=== PATIENT | male | born 1985 | race Two or more races ===

== ENCOUNTER 2019-03-26 08:26 | Inpatient (IN) | payer OTHER ==
[~2019-03-26] VITALS: Ht 180.3 cm; Wt 125.6 kg
--- NOTE | 2019-03-26 08:40 | NUR ---
ED Nurse Note: Patient walked into ED from home c/o bulging area around on the right groin area. patient reports "I'm worried that it might be hernia." patient is alert awake x4 ambulatory steady gait, breathing unlabored and even, speaking in full sentences. patient provided with hospital gown, RN assessed the area, skin aournd grown and testicles appear red and irritated, some serosanguinous fluid oozing from the skin tear on the right groin area. patient reports this oozing has been there for 4-5 days. patient felt the "bulging" swelling on the right groin for about 1 month. Also noted left thigh area redness and scabs. patient reports 8/10 on the right groin area.
--- NOTE | 2019-03-26 09:00 | NUR ---
ED Nurse Note: abscess present in Rt upper inner thigh with pus and a hole. ERMD assessed it.
--- NOTE | 2019-03-26 09:03 | NUR ---
HAND-OFF: Report given to Dallas Hicks RN. patient moved to tx 1
[2019-03-26] MEDS ORDERED: SODIUM CHLORIDE IVLG ONE (09:15)
[2019-03-26] MEDS ORDERED: Vancomycin 1.5 GM in NS 275 ML IVPB ONE (09:15)
[2019-03-26 09:26] VITALS: BP 133/89
--- NOTE | 2019-03-26 09:28 | Emergency Room Report ---
History of Present Illness General Chief Complaint: General Complaint Source: Patient Present Illness HPI The patient states that for the last month he has had a "lump" on his right inner thigh. He states that it has been draining pus. He denies fever chills. He denies nausea or vomiting. He states he thought because it was so large that possibly it was a hernia. He denies difficulty urinating or any bowel habit changes. He has no other complaints. Allergies: Coded Allergies: No Known Allergies (Unverified , 03/26/19) Patient History Past Medical History: none, see triage record Social History: Denies: smoking, alcohol use, drug use Reviewed Nursing Documentation: PMH: Agreed; PSxH: Agreed Nursing Documentation-PMH Past Medical History: No Stated History Review of Systems All Other Systems: negative except mentioned in HPI Physical Exam Vital Signs Date Time Temp Pulse Resp B/P (MAP) Pulse Ox O2 Delivery O2 Flow Rate FiO2 03/26/19 08:34 98.8 103 21 133/89 (104) 97 Room Air Sp02 EP Interpretation: reviewed, normal General Appearance: no apparent distress, alert, GCS 15, non-toxic Head: normocephalic, atraumatic Eyes: bilateral eye normal inspection, bilateral eye PERRL ENT: hearing grossly normal, normal pharynx, no angioedema, normal voice Neck: full range of motion, supple/symm/no masses Respiratory: chest non-tender, lungs clear, normal breath sounds, no respiratory distress, no retraction, no accessory muscle use, speaking full sentences Cardiovascular #1: regular rate, rhythm, no edema Gastrointestinal: normal bowel sounds, non tender, soft, non-distended, no guarding, no rebound Rectal: deferred Musculoskeletal: back normal, gait/station normal, normal range of motion, non- tender Neurologic: alert, oriented x3, responsive, motor strength/tone normal, sensory intact, speech normal Psychiatric: judgement/insight normal, memory normal, mood/affect normal, no suicidal/homicidal ideation Skin: other - R. Inner thigh with large area of induration and erythema. No fluctuance. Open and draining purulent discharge. Lymphatic: no adenopathy Medical Decision Making Diagnostic Impression: Primary Impression: Cellulitis Additional Impression: Abscess ER Course This patient has a very large indurated region of his right inner thigh with an associated draining cutaneous abscess. The abscess region feels loculated and nonfluctuant. The skin is erythematous and boggy and his findings are consistent with an associated cellulitis. I am concerned about the location and that this could extend into the perineal area and become Rebecca's gangrene or a more extensive abscess. The wound is spontaneously draining at this time. The patient was given IV vancomycin and admitted for further IV antibiotics and evaluation by general surgery. Laboratory Tests Test 03/26/19 09:22 White Blood Count 10.6 K/UL (4.8-10.8) Red Blood Count 4.74 M/UL (4.70-6.10) Hemoglobin 13.9 G/DL (14.2-18.0) L Hematocrit 42.7 % (42.0-52.0) Mean Corpuscular Volume 90 FL (80-99) Mean Corpuscular Hemoglobin 29.3 PG (27.0-31.0) Mean Corpuscular Hemoglobin Concent 32.5 G/DL (32.0-36.0) Red Cell Distribution Width 11.4 % (11.6-14.8) L Platelet Count 304 K/UL (150-450) Mean Platelet Volume 7.5 FL (6.5-10.1) Neutrophils (%) (Auto) 81.9 % (45.0-75.0) H Lymphocytes (%) (Auto) 13.4 % (20.0-45.0) L Monocytes (%) (Auto) 4.0 % (1.0-10.0) Eosinophils (%) (Auto) 0.2 % (0.0-3.0) Basophils (%) (Auto) 0.6 % (0.0-2.0) Sodium Level 139 MMOL/L (136-145) Potassium Level 4.1 MMOL/L (3.5-5.1) Chloride Level 103 MMOL/L (98-107) Carbon Dioxide Level 24 MMOL/L (21-32) Anion Gap 12 mmol/L (5-15) Blood Urea Nitrogen 9 mg/dL (7-18) Creatinine 0.9 MG/DL (0.55-1.30) Estimate Glomerular Filtration Rate > 60 mL/min (>60) Glucose Level 95 MG/DL (74-106) Lactic Acid Level 0.90 mmol/L (0.4-2.0) Calcium Level 9.1 MG/DL (8.5-10.1) Total Bilirubin 0.6 MG/DL (0.2-1.0) Aspartate Amino Transferase (AST) 24 U/L (15-37) Alanine Aminotransferase (ALT) 39 U/L (12-78) Alkaline Phosphatase 209 U/L (46-116) H Total Protein 8.7 G/DL (6.4-8.2) H Albumin 3.4 G/DL (3.4-5.0) Globulin 5.3 g/dL Albumin/Globulin Ratio 0.6 (1.0-2.7) L Last Vital Signs Date Time Temp Pulse Resp B/P (MAP) Pulse Ox O2 Delivery O2 Flow Rate FiO2 03/26/19 08:34 98.8 103 21 133/89 (104) 97 Room Air Status: improved Disposition: ADMITTED INPATIENT Condition: Serious Rachel Delgadillo DO Mar 26, 2019 09:28
[2019-03-26 09:36] LABS: BASOPHILS % (AUTO) 0.6 % (0.0-2.0); EOSINOPHILS % (AUTO) 0.2 % (0.0-3.0); HEMATOCRIT 42.7 % (42.0-52.0); HEMOGLOBIN 13.9 G/DL (14.2-18.0); LYMPHOCYTES % (AUTO) 13.4 % (20.0-45.0); MEAN CORPUSCULAR VOLUME 90 FL (80-99); NEUTROPHILS % (AUTO) 81.9 % (45.0-75.0); PLATELET COUNT 304 K/UL (150-450); RED BLOOD COUNT 4.74 M/UL (4.70-6.10); RED CELL DISTRIBUTION WIDTH 11.4 % (11.6-14.8); WHITE BLOOD COUNT 10.6 K/UL (4.8-10.8)
[2019-03-26] MEDS ORDERED: NKM (09:46)
[2019-03-26 10:00] LABS: ANION GAP 12 mmol/L (5-15); BLOOD UREA NITROGEN 9 mg/dL (7-18); CALCIUM 9.1 MG/DL (8.5-10.1); CARBON DIOXIDE 24 MMOL/L (21-32); CHLORIDE 103 MMOL/L (98-107); CREATININE 0.9 MG/DL (0.55-1.30); POTASSIUM 4.1 MMOL/L (3.5-5.1); SODIUM 139 MMOL/L (136-145)
[2019-03-26 10:14] LABS: ALANINE AMINOTRANSFERASE 39 U/L (12-78); ALBUMIN 3.4 G/DL (3.4-5.0); ALBUMIN/GLOBULIN RATIO 0.6 (1.0-2.7); ALKALINE PHOSPHATASE 209 U/L (46-116); ASPARTATE AMINO TRANSFERASE 24 U/L (15-37); BILIRUBIN,TOTAL 0.6 MG/DL (0.2-1.0)
[2019-03-26 11:11] VITALS: BP 129/78
--- NOTE | 2019-03-26 13:14 | NUR ---
ED Nurse Note: Report given to SKYE Ramirez. waiting for ERMD to give report to Dr. Solis.
--- NOTE | 2019-03-26 13:36 | NUR ---
ED Nurse Note: pt left unit with 1 simulation tech in stable condition.
[2019-03-26 14:45] VITALS: BP 134/78
--- NOTE | 2019-03-26 14:47 | NUR ---
NURSE NOTES: Patient transferred from ER at 1350 via gurney. Belongings reviewed and accounted for. Patient has wallet, 1 debit card, and $2 at bedside. Patient reports that he wants to keep belongings at bedside and does not want to send items to safe. Patient is alert and oriented x4. Abscess on right groin has drainage, patient reports minimal pain at site. Patient oriented to room. Side rails are upx2, bed is locked, and call light placed near patient. Dr. Solis called for admission orders. New orders received.
[2019-03-26] MEDS: Doxycycline Monohydrate 100mg ORAL SCH ×2 (15:36→20:43)
[2019-03-26 16:00] VITALS: BP 141/88
[2019-03-26] MEDS ORDERED: Omnipaque-300 100ml vial INJ PRN (16:00)
--- NOTE | 2019-03-26 16:00 | Consultation ---
History of Present Illness General Date patient seen: Mar 26, 2019 Reason for Hospitalization: General Complaint Present Illness HPI 34 year old male patient states that for the last month he has had a "lump" on his right inner thigh. He states that it has been draining pus. He denies fever chills. He denies nausea or vomiting. He states he thought because it was so large that possibly it was a hernia. He denies difficulty urinating or any bowel habit changes. He has no other complaints. Decided that it has been ongoing for long enough and came in for evaluation. states pus draining for days. has also a right buttock area similar. has good hygiene. sweats a lot. labs okay. surgery called to evaluate. patient seen, chart reviewed, patient examined. Allergies: Coded Allergies: No Known Allergies (Unverified , 03/26/19) Medication History Scheduled No Known Medications* (NKM - No Known Medications*), 0 ., (Reported) Patient History History Provided By: Patient, Medical Record, PMD Healthcare decision maker Resuscitation status Full Code Advanced Directive on File Past Medical/Surgical History Past Medical/Surgical History: (1) Cellulitis (2) Abscess Review of Systems Review of Symptoms General ROS: no weight loss or fever Psychological ROS: no depression or mood changes, no memory loss Ophthalmic ROS: no visual changes or eye irritation ENT ROS: no nasal congestion, hearing loss, dizziness Allergy and Immunology ROS: no allergic symptoms or urticaria Hematological and Lymphatic ROS: no swollen glands, unusual bleeding or bruising Endocrine ROS: no polyuria, polydipsia, weight changes, temperature intolerance Respiratory ROS: no cough, shortness of breath, or wheezing Cardiovascular ROS: no chest pain or dyspnea on exertion Gastrointestinal ROS: denies abdominal pain, no bright red blood in stool. Musculoskeletal ROS: no myalgias or arthralgias Neurological ROS: no TIA or stroke symptoms Dermatological ROS: no new or changing skin lesions, rashes or pruritis Physical Exam Physical Exam General appearance: alert, cooperative, no distress, appears stated age Head: Normocephalic, without obvious abnormality, atraumatic Eyes: conjunctivae/corneas clear. PERRL, EOM's intact. Fundi benign Throat: Lips, mucosa, and tongue normal. Teeth and gums normal Neck: supple, symmetrical, trachea midline, no adenopathy, thyroid: not enlarged, symmetric, no tenderness/mass/nodules, no carotid bruit and no JVD Lungs: clear to auscultation bilaterally Heart: regular rate and rhythm, S1, S2 normal, no murmur, click, rub or gallop Abdomen: soft, non-tender. Bowel sounds normal. No masses, no organomegaly Extremities: extremities normal, atraumatic, no cyanosis or edema Pulses: 2+ and symmetric Skin: Skin color, texture, turgor normal. No rashes or lesions. right inner thigh there is an area of induration and drainage of pus. wraps around to buttock and left inner thigh. Neurologic: Grossly normal Last 24 Hour Vital Signs Date Time Temp Pulse Resp B/P (MAP) Pulse Ox O2 Delivery O2 Flow Rate FiO2 03/26/19 15:18 Room Air 03/26/19 14:45 97.9 89 18 134/78 (96) 99 03/26/19 13:34 98.1 88 16 126/79 98 Room Air 03/26/19 11:11 98.2 91 16 129/78 98 Room Air 03/26/19 09:26 98.8 103 21 133/89 97 Room Air 03/26/19 09:26 103 21 Room Air 03/26/19 08:34 98.8 103 21 133/89 (104) 97 Room Air Laboratory Tests Test 03/26/19 09:22 White Blood Count 10.6 K/UL (4.8-10.8) Red Blood Count 4.74 M/UL (4.70-6.10) Hemoglobin 13.9 G/DL (14.2-18.0) L Hematocrit 42.7 % (42.0-52.0) Mean Corpuscular Volume 90 FL (80-99) Mean Corpuscular Hemoglobin 29.3 PG (27.0-31.0) Mean Corpuscular Hemoglobin Concent 32.5 G/DL (32.0-36.0) Red Cell Distribution Width 11.4 % (11.6-14.8) L Platelet Count 304 K/UL (150-450) Mean Platelet Volume 7.5 FL (6.5-10.1) Neutrophils (%) (Auto) 81.9 % (45.0-75.0) H Lymphocytes (%) (Auto) 13.4 % (20.0-45.0) L Monocytes (%) (Auto) 4.0 % (1.0-10.0) Eosinophils (%) (Auto) 0.2 % (0.0-3.0) Basophils (%) (Auto) 0.6 % (0.0-2.0) Sodium Level 139 MMOL/L (136-145) Potassium Level 4.1 MMOL/L (3.5-5.1) Chloride Level 103 MMOL/L (98-107) Carbon Dioxide Level 24 MMOL/L (21-32) Anion Gap 12 mmol/L (5-15) Blood Urea Nitrogen 9 mg/dL (7-18) Creatinine 0.9 MG/DL (0.55-1.30) Estimat Glomerular Filtration Rate > 60 mL/min (>60) Glucose Level 95 MG/DL (74-106) Lactic Acid Level 0.90 mmol/L (0.4-2.0) Calcium Level 9.1 MG/DL (8.5-10.1) Total Bilirubin 0.6 MG/DL (0.2-1.0) Aspartate Amino Transf (AST/SGOT) 24 U/L (15-37) Alanine Aminotransferase (ALT/SGPT) 39 U/L (12-78) Alkaline Phosphatase 209 U/L (46-116) H Total Protein 8.7 G/DL (6.4-8.2) H Albumin 3.4 G/DL (3.4-5.0) Globulin 5.3 g/dL Albumin/Globulin Ratio 0.6 (1.0-2.7) L Height (Feet): 5 Height (Inches): 11.00 Weight (Pounds): 277 Medications Current Medications Medications (Trade) Dose Ordered Sig/Rosalba Route PRN Reason Start Time Stop Time Status Last Admin Dose Admin Acetaminophen (Tylenol) 650 mg Q4H PRN ORAL Mild Pain/Temp > 100.5 03/26/19 14:45 04/25/19 14:44 03/26/19 15:37 Doxycycline Monohydrate (Doxycycline Monohydrate) 100 mg EVERY 12 HOURS ORAL 03/26/19 14:58 04/02/19 14:57 03/26/19 15:36 Assessment/Plan Problem List: (1) Abscess Assessment & Plan: 34M with spontaneously draining right thigh abscess present for 1 month buttock area as well and left thigh almost consistent with HS hydradenitis superlative no acute surgical intervention planned since draining spont CT ordered to ensure no deep pocket IV abx as per ID okay for diet hygiene local wound care and skin care instructions given thank you will follow with recs ICD Codes: L02.91 - Cutaneous abscess, unspecified SNOMED: [id number] (2) Cellulitis ICD Codes: L03.90 - Cellulitis, unspecified SNOMED: [id number] Jorge Londono Mar 26, 2019 16:00
--- NOTE | 2019-03-26 17:44 | NUR ---
NURSE NOTES: During admission assessment patient reported that he has had suicide ideation in the past. He reports that he does not have a suicide thoughts right now and that he does not have a suicide plan, but reports that he could benefit from seeing a psychiatrist. Patient also reported that he used to cut himself. Dr. Solis notified. New order received for psychiatric consult. Dr. Blackman notified.
--- NOTE | 2019-03-26 17:45 | Consultation ---
DATE OF CONSULTATION: 03/26/2019 INFECTIOUS DISEASE CONSULTATION CONSULTING PHYSICIAN: Low Hernandez M.D. PRIMARY ATTENDING: Dayami Solis M.D. REASON FOR CONSULT: Right groin skin lesion, abscess, cellulitis. HISTORY OF PRESENT ILLNESS: This is a 34-year-old male admitted today from home complaining of developing a round lump in the right groin upper thigh area for 4 months. Started having draining recently. No fever. No chills. No significant pain. The patient started to feel the pain and the lesion was hernia. PAST MEDICAL HISTORY: Insignificant. MEDICATIONS: Got a dose of vancomycin in the ER. Has Tylenol. ALLERGIES: No known drug allergy. SOCIAL HISTORY: Single. Denies alcohol, drug abuse, or smoking. Had HIV test a few months ago that was negative. Works in [employer]. REVIEW OF SYSTEMS: No fever. No chills. No coughing. No shortness of breath. No nausea. No vomiting. No dysuria. PHYSICAL EXAMINATION: VITAL SIGNS: Temperature 98.1, pulse 88, blood pressure 126/79. GENERAL APPEARANCE: No acute distress. Seems obese. HEAD AND NECK: [place] conjunctivae. Slightly whitish tongue. HEART: Normal rate. LUNGS: Clear. ABDOMEN: Soft, nontender. EXTREMITIES: Has no edema. SKIN: Abnormal skin bilateral groins, more in the right side with lumps and draining sites. LABORATORY AND DIAGNOSTIC DATA: Sodium 139, potassium 4.1, chloride 103, bicarbonate 24, BUN 9, creatinine 0.9, glucose 95. Alkaline phosphatase is elevated 209. Albumin is 3.4. IMPRESSION: Hidradenitis suppurativa, worse in the right groin area. The patient has morbid obesity. RECOMMENDATION: Start the patient on p.o. doxycycline. Surgical evaluation is pending. We will also obtain wound culture from the lesion. At the end of my exam, I thank Dr. Solis for involving me in the care of this patient. Low Hernandez M.D. DR: ARSLAN JOB#: [id number] CC: MARIA ELENA
--- NOTE | 2019-03-26 19:40 | NUR ---
HAND-OFF: Report given to SKYE Diaz.
--- NOTE | 2019-03-26 19:50 | NUR ---
NURSE NOTES: received report form SKYE Quarles. Patient A&Ox4, on room air, no signs of distress or labored breathing. IV intact, patent, and saline locked. Denies pain. Bed in lowest position with call light in reach. Will continue with plan of care.
[2019-03-26 20:00] VITALS: BP 120/66
[2019-03-27] VITALS: BP 110/72
[2019-03-27 04:00] VITALS: BP 129/86
[2019-03-27 07:04] LABS: BASOPHILS % (AUTO) 0.7 % (0.0-2.0); HEMATOCRIT 36.9 % (42.0-52.0); LYMPHOCYTES % (AUTO) 24.3 % (20.0-45.0); MEAN CORPUSCULAR VOLUME 89 FL (80-99); MONOCYTES % (AUTO) 5.7 % (1.0-10.0); NEUTROPHILS % (AUTO) 68.3 % (45.0-75.0); PLATELET COUNT 267 K/UL (150-450); RED BLOOD COUNT 4.15 M/UL (4.70-6.10); RED CELL DISTRIBUTION WIDTH 12.5 % (11.6-14.8)
[2019-03-27 07:13] LABS: ALANINE AMINOTRANSFERASE 30 U/L (12-78); ALBUMIN 2.9 G/DL (3.4-5.0); ALBUMIN/GLOBULIN RATIO 0.7 (1.0-2.7); ALKALINE PHOSPHATASE 155 U/L (46-116); ANION GAP 7 mmol/L (5-15); ASPARTATE AMINO TRANSFERASE 19 U/L (15-37); BILIRUBIN,TOTAL 0.3 MG/DL (0.2-1.0); BLOOD UREA NITROGEN 7 mg/dL (7-18); CARBON DIOXIDE 27 MMOL/L (21-32); CHLORIDE 108 MMOL/L (98-107); CREATININE 0.8 MG/DL (0.55-1.30); POTASSIUM 4.2 MMOL/L (3.5-5.1); SODIUM 142 MMOL/L (136-145)
--- NOTE | 2019-03-27 07:32 | NUR ---
HAND-OFF: Report given to SKYE Quarles.
[2019-03-27 08:00] VITALS: BP 152/72
--- NOTE | 2019-03-27 08:21 | NUR ---
NURSE NOTES: Patient is alert and oriented. No reports of pain at the moment. Patient is sitting up in bed. Side rails are up x2, bed is locked, and call light is within reach. Will continue to monitor.
[2019-03-27] MEDS: Doxycycline Monohydrate 100mg ORAL SCH ×2 (08:43→20:19)
--- NOTE | 2019-03-27 10:31 | Infectious Diseases Prog Note ---
Assessment/Plan Assessment/Plan IMPRESSION: Hidradenitis suppurativa, worse in the right groin area. Cellulitis & Abscess of groin morbid obesity. RECOMMENDATION: Continue p.o. doxycycline Will f/u CT scan & wound culture Subjective ROS Limited/Unobtainable: Yes Cardiovascular: Reports: no symptoms Gastrointestinal/Abdominal: Reports: no symptoms Genitourinary: Reports: no symptoms Skin: Reports: other - decreased pain & secretion from thigh wound Allergies: Coded Allergies: No Known Allergies (Unverified , 03/26/19) Objective Vital Signs Last 24 Hour Vital Signs Date Time Temp Pulse Resp B/P (MAP) Pulse Ox O2 Delivery O2 Flow Rate FiO2 03/27/19 04:00 98.0 59 18 129/86 (100) 98 03/27/19 00:00 98.0 62 18 110/72 (85) 98 03/26/19 21:00 Room Air 03/26/19 20:00 98.1 76 18 120/66 (84) 98 03/26/19 16:00 98.5 87 18 141/88 (105) 98 03/26/19 15:18 Room Air 03/26/19 14:45 97.9 89 18 134/78 (96) 99 03/26/19 13:34 98.1 88 16 126/79 98 Room Air 03/26/19 11:11 98.2 91 16 129/78 98 Room Air Height (Feet): 5 Height (Inches): 11.00 Weight (Pounds): 277 General Appearance: no acute distress HEENT: mucous membranes moist Respiratory/Chest: lungs clear Cardiovascular: normal rate Abdomen: soft, non tender Extremities: no edema Skin: other - ulcer , nodules & discharge from right groin area Neurologic/Psychiatric: alert, oriented x 3, responsive Microbiology Date/Time Source Procedure Growth Status 03/26/19 15:30 Groin Gram Stain Pending Resulted 03/26/19 15:30 Groin Wound Culture - Preliminary Resulted Laboratory Tests Test 03/27/19 05:50 White Blood Count 7.0 K/UL (4.8-10.8) Red Blood Count 4.15 M/UL (4.70-6.10) L Hemoglobin 12.0 G/DL (14.2-18.0) L Hematocrit 36.9 % (42.0-52.0) L Mean Corpuscular Volume 89 FL (80-99) Mean Corpuscular Hemoglobin 28.9 PG (27.0-31.0) Mean Corpuscular Hemoglobin Concent 32.5 G/DL (32.0-36.0) Red Cell Distribution Width 12.5 % (11.6-14.8) Platelet Count 267 K/UL (150-450) Mean Platelet Volume 6.7 FL (6.5-10.1) Neutrophils (%) (Auto) 68.3 % (45.0-75.0) Lymphocytes (%) (Auto) 24.3 % (20.0-45.0) Monocytes (%) (Auto) 5.7 % (1.0-10.0) Eosinophils (%) (Auto) 1.0 % (0.0-3.0) Basophils (%) (Auto) 0.7 % (0.0-2.0) Erythrocyte Sedimentation Rate 55 MM/HR (0-15) H Prothrombin Time 10.1 SEC (9.30-11.50) Prothromb Time International Ratio 1.0 (0.9-1.1) Activated Partial Thromboplast Time 25 SEC (23-33) Sodium Level 142 MMOL/L (136-145) Potassium Level 4.2 MMOL/L (3.5-5.1) Chloride Level 108 MMOL/L (98-107) H Carbon Dioxide Level 27 MMOL/L (21-32) Anion Gap 7 mmol/L (5-15) Blood Urea Nitrogen 7 mg/dL (7-18) Creatinine 0.8 MG/DL (0.55-1.30) Estimat Glomerular Filtration Rate > 60 mL/min (>60) Glucose Level 81 MG/DL (74-106) Calcium Level 9.0 MG/DL (8.5-10.1) Total Bilirubin 0.3 MG/DL (0.2-1.0) Aspartate Amino Transf (AST/SGOT) 19 U/L (15-37) Alanine Aminotransferase (ALT/SGPT) 30 U/L (12-78) Alkaline Phosphatase 155 U/L (46-116) H C-Reactive Protein, Quantitative 4.3 mg/dL (0.00-0.90) H Total Protein 7.3 G/DL (6.4-8.2) Albumin 2.9 G/DL (3.4-5.0) L Globulin 4.4 g/dL Albumin/Globulin Ratio 0.7 (1.0-2.7) L Current Medications Medications (Trade) Dose Ordered Sig/Rosalba Route PRN Reason Start Time Stop Time Status Last Admin Dose Admin Acetaminophen (Tylenol) 650 mg Q4H PRN ORAL Mild Pain/Temp > 100.5 03/26/19 14:45 04/25/19 14:44 03/27/19 00:26 Doxycycline Monohydrate (Doxycycline Monohydrate) 100 mg EVERY 12 HOURS ORAL 03/26/19 14:58 04/02/19 14:57 03/27/19 08:43 Iohexol (OMNIPAQUE-300 100ml) 100 ml ONCE PRN INJ radiology procedure 03/26/19 16:00 03/28/19 15:59 Low Hernandez MD Mar 27, 2019 10:31
[2019-03-27 12:00] VITALS: BP 140/80
--- NOTE | 2019-03-27 14:04 | Surgery Progress Note ---
Surgery Progress Note Subjective Symptoms: improved, pain absent, tolerating diet, voiding well, passing flatus Objective Last 24 Hour Vital Signs Date Time Temp Pulse Resp B/P (MAP) Pulse Ox O2 Delivery O2 Flow Rate FiO2 03/27/19 12:00 97.2 75 18 140/80 (100) 97 03/27/19 08:15 Room Air 03/27/19 08:00 97.0 62 18 152/72 (98) 97 03/27/19 04:00 98.0 59 18 129/86 (100) 98 03/27/19 00:00 98.0 62 18 110/72 (85) 98 03/26/19 21:00 Room Air 03/26/19 20:00 98.1 76 18 120/66 (84) 98 03/26/19 16:00 98.5 87 18 141/88 (105) 98 03/26/19 15:18 Room Air 03/26/19 14:45 97.9 89 18 134/78 (96) 99 I&O Intake and Output 03/26/19 03/27/19 19:00 07:00 Intake Total 5125 ml Balance 5125 ml Intake Oral 650 ml IV Total 4475 ml # Voids 1 1 # Bowel Movements 1 Dressing: saturated Wound: clean Cardiovascular: RSR Respiratory: clear Abdomen: soft, flat, non-tender, tenderness, absent bowel sounds, present bowel sounds Extremities: other Laboratory Tests Test 03/27/19 05:50 White Blood Count 7.0 K/UL (4.8-10.8) Red Blood Count 4.15 M/UL (4.70-6.10) L Hemoglobin 12.0 G/DL (14.2-18.0) L Hematocrit 36.9 % (42.0-52.0) L Mean Corpuscular Volume 89 FL (80-99) Mean Corpuscular Hemoglobin 28.9 PG (27.0-31.0) Mean Corpuscular Hemoglobin Concent 32.5 G/DL (32.0-36.0) Red Cell Distribution Width 12.5 % (11.6-14.8) Platelet Count 267 K/UL (150-450) Mean Platelet Volume 6.7 FL (6.5-10.1) Neutrophils (%) (Auto) 68.3 % (45.0-75.0) Lymphocytes (%) (Auto) 24.3 % (20.0-45.0) Monocytes (%) (Auto) 5.7 % (1.0-10.0) Eosinophils (%) (Auto) 1.0 % (0.0-3.0) Basophils (%) (Auto) 0.7 % (0.0-2.0) Erythrocyte Sedimentation Rate 55 MM/HR (0-15) H Prothrombin Time 10.1 SEC (9.30-11.50) Prothromb Time International Ratio 1.0 (0.9-1.1) Activated Partial Thromboplast Time 25 SEC (23-33) Sodium Level 142 MMOL/L (136-145) Potassium Level 4.2 MMOL/L (3.5-5.1) Chloride Level 108 MMOL/L (98-107) H Carbon Dioxide Level 27 MMOL/L (21-32) Anion Gap 7 mmol/L (5-15) Blood Urea Nitrogen 7 mg/dL (7-18) Creatinine 0.8 MG/DL (0.55-1.30) Estimat Glomerular Filtration Rate > 60 mL/min (>60) Glucose Level 81 MG/DL (74-106) Calcium Level 9.0 MG/DL (8.5-10.1) Total Bilirubin 0.3 MG/DL (0.2-1.0) Aspartate Amino Transf (AST/SGOT) 19 U/L (15-37) Alanine Aminotransferase (ALT/SGPT) 30 U/L (12-78) Alkaline Phosphatase 155 U/L (46-116) H C-Reactive Protein, Quantitative 4.3 mg/dL (0.00-0.90) H Total Protein 7.3 G/DL (6.4-8.2) Albumin 2.9 G/DL (3.4-5.0) L Globulin 4.4 g/dL Albumin/Globulin Ratio 0.7 (1.0-2.7) L Plan Problems: (1) Abscess Assessment & Plan: 34M with spontaneously draining right thigh abscess present for 1 month buttock area as well and left thigh almost consistent with HS hydradenitis superlative no acute surgical intervention planned since draining spont CT ordered to ensure no deep pocket - pending results. done this AM IV abx as per JERRY iniguez for diet hygiene local wound care and skin care instructions given thank you will follow with recs (2) Cellulitis Jorge Londono Mar 27, 2019 14:04
--- NOTE | 2019-03-27 14:10 | Diagnostic Imaging Report ---
Indication: 34 year old male patient states that for the last month he has had a "lump" on his right inner thigh. He states that it has been draining pus. He denies fever chills. He denies nausea or vomiting. He states he thought because it was so large that possibly it was a hernia. He denies difficulty urinating or any bowel habit changes. He has no other complaints. Decided that it has been ongoing for long enough and came in for evaluation. states pus draining for days. has also a right buttock area similar. has good hygiene. sweats a lot. labs okay. Technique: CT of the pelvis utilizing automated exposure control with intravenous contrast. Venous scanning performed. Axial, sagittal and coronal reformats presented. CT dose: Total DLP 2111.4 mGycm; CTDI vol 9.4 mGy Comparison: None Findings: There is some thickening of the skin of the medial right upper thigh (series 3 image #[id number]). There is some asymmetric stranding in the 17th fat in this region (series 3 image #113) without organized/drainable fluid collection to suggest abscess. Similar findings are noted to a lesser extent involving the scans of the right gluteal cleft (series 3 image #112). Again no well-defined/drainable fluid collection is identified. Findings may be related to a cellulitis and correlation with physical exam of these areas is recommended. There are prominent bilateral inguinal lymph nodes, right greater than left, thought to be reactive in etiology. There is a tiny fat-containing umbilical hernia. Partially imaged appendix is normal in caliber. There are a few scattered colonic diverticula without evidence of acute diverticulitis. Imaged portions of the aorta and iliac vessels normal in caliber. There is mild degenerative changes of the lower lumbar spine with small disc bulges. No acute osseous abnormality. IMPRESSION: * Skin thickening of medial right upper thigh with some associated asymmetric stranding in the subcutaneous fat in this region (series 3 image #[id number]). No organized/drainable fluid collection to suggest abscess. Similar findings are noted to a lesser extent involving the skin of the right gluteal cleft (series 3 image #112). Again no well-defined/drainable fluid collection is identified. Findings may be related to a cellulitis and correlation with physical exam of these areas is recommended. * Prominent inguinal lymph nodes, right greater than left favored to be reactive in etiology. * Few scattered colonic diverticula visualized without evidence of acute diverticulitis. The CT scanner at [facility] is accredited by the [employer] and the scans are performed using protocols designed to limit radiation exposure to as low as reasonably achievable to attain images of sufficient resolution adequate for diagnostic evaluation.
[2019-03-27 16:00] VITALS: BP 136/91
--- NOTE | 2019-03-27 19:37 | NUR ---
NURSE NOTES: Received report from SKYE Quarles. Patient A&Ox4. On room air, no signs of distress or labored breathing. IV intact, patent, and saline locked. In stable condition. Bed in lowest position with call light in reach. Will continue with plan of care.
--- NOTE | 2019-03-27 19:45 | NUR ---
HAND-OFF: Report given to SKYE Diaz.
[2019-03-27 20:00] VITALS: BP 122/75
[2019-03-28] VITALS: BP 142/75
[2019-03-28 04:00] VITALS: BP 155/72
--- NOTE | 2019-03-28 04:15 | History and Physical Report ---
DATE OF ADMISSION: 03/26/2019 HISTORY OF PRESENT ILLNESS: The patient basically comes in. The patient has an abscess that is draining by itself according to the patient and that is located on the right inner upper thigh. It has been going on for one month. The patient stated that it is hurting him, so he decided to come in and was draining by itself. The patient is admitted for IV antibiotics. The patient complains of pain in that area. Otherwise, denies nausea, vomiting, or diarrhea. Denies fever or chills. No shortness of breath. Denies cough. PAST MEDICAL HISTORY: None known. PAST SURGICAL HISTORY: Dental surgery. MEDICATIONS: None. ALLERGIES: No known allergies. SOCIAL HISTORY: History of smoking. History of drug abuse. No history of alcohol abuse. FAMILY HISTORY: Noncontributory. REVIEW OF SYSTEMS: HEENT: Denies headaches. PULMONARY: Denies shortness of breath. Denies cough. CARDIOVASCULAR: Denies chest pain. GASTROINTESTINAL: Denies nausea, vomiting, or diarrhea. EXTREMITIES: He does have pain on the right inner thigh and upper thigh where the abscess draining abscesses. CENTRAL NERVOUS SYSTEM: Denies any changes in vision or speech pattern. . Denies weakness. PHYSICAL EXAMINATION: VITAL SIGNS: Temperature is 98.1, pulse 76, and blood pressure 120/66. HEENT: PERRLA. NECK: Supple. No lymphadenopathy. CHEST: Clear to auscultation. CARDIOVASCULAR: Regular rate and rhythm. No murmurs or extra sounds. GASTROINTESTINAL: Soft, nontender, and nondistended. No organomegaly. EXTREMITIES: The patient does have erythema right upper thigh that is draining pus, otherwise able to moves all four extremities. Reflexes on both sides. CENTRAL NERVOUS SYSTEM: Reflexes on both sides. Moves all four extremities. Sensory is intact to light touch. LABORATORY DATA: WBC 10.6, hemoglobin 13.9, and platelets 304. Sodium 139, potassium 4.1, BUN 9, creatinine 0.9, and glucose 95. ASSESSMENT AND PLAN: Cellulitis/abscess in the right thigh. I have basically consulted Dr. Londono for possible further I and D as well as Dr. Low Hernandez for the IV antibiotics. Antibiotics per Dr. Low Hernandez. Ali Ludmila Solis DR: DUNIA JOB#: [id number] CC:
--- NOTE | 2019-03-28 07:30 | NUR ---
NURSE NOTES: Received pt from LEANDRO CHEUNG. Pt is alert and orient x4. pt is in RA, no SOB or acute respiratory distress noted. pt has intact IV access RAC 20g SL. Pt is eating breakfast independently. all needs attended, bed is locked and is in the lowest position, call light within easy reach. will continue to monitor.
--- NOTE | 2019-03-28 07:31 | NUR ---
HAND-OFF: Report given to SKYE Cedillo.
[2019-03-28 08:00] VITALS: BP 134/64
[2019-03-28] MEDS: Doxycycline Monohydrate 100mg ORAL SCH (08:25)
--- NOTE | 2019-03-28 09:46 | Consultation ---
History of Present Illness General Chief Complaint: General Complaint Present Illness Allergies: Coded Allergies: No Known Allergies (Unverified , 03/26/19) Medication History Scheduled No Known Medications* (NKM - No Known Medications*), 0 ., (Reported) Patient History Healthcare decision maker Resuscitation status Full Code Advanced Directive on File Physical Exam Last 24 Hour Vital Signs Date Time Temp Pulse Resp B/P (MAP) Pulse Ox O2 Delivery O2 Flow Rate FiO2 03/28/19 04:00 97.9 55 20 155/72 (99) 95 03/28/19 00:00 97.3 61 18 142/75 (97) 95 03/27/19 21:00 Room Air 03/27/19 20:00 98.1 66 20 122/75 (91) 95 03/27/19 16:00 98.3 71 20 136/91 (106) 98 03/27/19 12:00 97.2 75 18 140/80 (100) 97 Intake and Output 03/27/19 03/28/19 19:00 07:00 Intake Total 300 ml Balance 300 ml Intake Oral 300 ml # Voids 2 Height (Feet): 5 Height (Inches): 11.00 Weight (Pounds): 277 Medications Current Medications Medications (Trade) Dose Ordered Sig/Rosalba Route PRN Reason Start Time Stop Time Status Last Admin Dose Admin Acetaminophen (Tylenol) 650 mg Q4H PRN ORAL Mild Pain/Temp > 100.5 03/26/19 14:45 04/25/19 14:44 03/28/19 04:56 Doxycycline Monohydrate (Doxycycline Monohydrate) 100 mg EVERY 12 HOURS ORAL 03/26/19 14:58 04/02/19 14:57 03/28/19 08:25 Iohexol (OMNIPAQUE-300 100ml) 100 ml ONCE PRN INJ radiology procedure 03/26/19 16:00 03/28/19 15:59 Assessment/Plan Assessment/Plan: Hematology Consultation Chief Complaint: General Complaint, groin drainage REQ : Dayami Colon RFC: Lymphadenopathy eval DOS: 03/28/19 ID 34y old male for the last month he has had a "lump" on his right inner thigh. He states that it has been draining pus. He denies fever chills. He denies nausea or vomiting. He states he thought because it was so large that possibly it was a hernia. He denies difficulty urinating or any bowel habit changes. He has no other complaints. Noted to have anemia as well as elev protein, heme was consulted. All No Known Allergies (Unverified , 03/26/19) Patient History Past Medical History: none, see triage record Social History: Denies: smoking, alcohol use, drug use Reviewed Nursing Documentation: PMH: Agreed; PSxH: Agreed Past Medical History: No Stated History Review of Systems All Other Systems: negative except mentioned in HPI PE General: no apparent distress, alert, non-toxic Head: normocephalic, at Respiratory: chest non-tender, lungs clear, normal breath sounds Cardiovascular: regular rate, rhythm, no edema Gastrointestinal: normal bowel sounds, nt Msk: back normal, gait/station normal, normal range of motion, non-tender Neuro: alert, oriented x3, responsive Psychiatric: judgement/insight normal Gu: R. Inner thigh with large area of induration and erythema. No fluctuance. Open and draining purulent discharge. Labs: noted Imaging: reviewed Assessment and recs: # Lymphadeopathy around right groin site is likely related to hydradenitis suppertiva --> has been seen by surg, with spontaneous drainage --> abx on prn basis --> monitor for improvement --> in this case very unlikley lymphoma, does not need biopsy # Anemia due to underlying chronic disease --> likely also related to ivfs --> trend hgb 13-->12 --> no evidence of hemolysis # Hyperproteinemia --> can be due to inflammatory process # Cellulitis --> remains on abx # DVt ppx scds and ambil Greatly appreciate consultation. Matias Hernandez MD Mar 28, 2019 09:46
--- NOTE | 2019-03-28 11:35 | NUR ---
*-* INSURANCE *-* ALL AVAILABLE CLINICALS HAVE BEEN FAXED TO: [facility]GARRETT NO MORTGAGE LOAN PROCESSING CLERK ASSIGNED AT THIS TIME. PLEASE FAX THE REVIEW/CLINICAL P- [phone] F- [phone]....REVIEW/CLINICAL
[2019-03-28 12:00] VITALS: BP 134/92
--- NOTE | 2019-03-28 12:16 | General Progress Note ---
Assessment/Plan Problem List: (1) Abscess ICD Codes: L02.91 - Cutaneous abscess, unspecified SNOMED: 067554310 (2) Cellulitis ICD Codes: L03.90 - Cellulitis, unspecified SNOMED: 647083681 Status: progressing Assessment/Plan: thigh cellulitis /draining abscess abx per id dr farmer is also consulted afebrile reviewed chart and labs Subjective ROS Limited/Unobtainable: Yes Allergies: Coded Allergies: No Known Allergies (Unverified , 03/26/19) Objective Last 24 Hour Vital Signs Date Time Temp Pulse Resp B/P (MAP) Pulse Ox O2 Delivery O2 Flow Rate FiO2 03/28/19 09:00 Room Air 03/28/19 08:00 97.0 67 18 134/64 (87) 99 03/28/19 04:00 97.9 55 20 155/72 (99) 95 03/28/19 00:00 97.3 61 18 142/75 (97) 95 03/27/19 21:00 Room Air 03/27/19 20:00 98.1 66 20 122/75 (91) 95 03/27/19 16:00 98.3 71 20 136/91 (106) 98 Intake and Output 03/27/19 03/28/19 19:00 07:00 Intake Total 300 ml Balance 300 ml Intake Oral 300 ml # Voids 2 Height (Feet): 5 Height (Inches): 11.00 Weight (Pounds): 277 Cardiovascular: normal rate Respiratory/Chest: lungs clear Abdomen: soft Dayami Solis MD Mar 28, 2019 12:16
--- NOTE | 2019-03-28 13:26 | Infectious Diseases Prog Note ---
Assessment/Plan Assessment/Plan IMPRESSION: Hidradenitis suppurativa, worse in the right groin area. Cellulitis & Abscess of groin - wound culture strep group A & Staph aureus morbid obesity. RECOMMENDATION: Continue p.o. doxycycline Add PO Keflex Subjective ROS Limited/Unobtainable: No Constitutional: Reports: no symptoms, other - feels better Respiratory: Reports: no symptoms Gastrointestinal/Abdominal: Reports: no symptoms Genitourinary: Reports: no symptoms Allergies: Coded Allergies: No Known Allergies (Unverified , 03/26/19) Objective Vital Signs Last 24 Hour Vital Signs Date Time Temp Pulse Resp B/P (MAP) Pulse Ox O2 Delivery O2 Flow Rate FiO2 03/28/19 12:00 98.6 67 18 134/92 (106) 98 03/28/19 09:00 Room Air 03/28/19 08:00 97.0 67 18 134/64 (87) 99 03/28/19 04:00 97.9 55 20 155/72 (99) 95 03/28/19 00:00 97.3 61 18 142/75 (97) 95 03/27/19 21:00 Room Air 03/27/19 20:00 98.1 66 20 122/75 (91) 95 03/27/19 16:00 98.3 71 20 136/91 (106) 98 Height (Feet): 5 Height (Inches): 11.00 Weight (Pounds): 277 General Appearance: no acute distress HEENT: mucous membranes moist Respiratory/Chest: lungs clear Cardiovascular: normal rate Abdomen: soft, non tender Extremities: no edema Skin: other - erythema of right groin, decreased secretion Microbiology Date/Time Source Procedure Growth Status 03/26/19 09:22 Blood Blood Culture - Preliminary NO GROWTH AFTER 48 HOURS Resulted 03/26/19 09:22 Blood Blood Culture - Preliminary NO GROWTH AFTER 48 HOURS Resulted 03/26/19 15:30 Groin Gram Stain - Final Resulted 03/26/19 15:30 Wound Culture - Preliminary Staphylococcus Aureus Streptococcus Group A Resulted Current Medications Medications (Trade) Dose Ordered Sig/Rosalba Route PRN Reason Start Time Stop Time Status Last Admin Dose Admin Acetaminophen (Tylenol) 650 mg Q4H PRN ORAL Mild Pain/Temp > 100.5 03/26/19 14:45 04/25/19 14:44 03/28/19 04:56 Doxycycline Monohydrate (Doxycycline Monohydrate) 100 mg EVERY 12 HOURS ORAL 03/26/19 14:58 04/02/19 14:57 03/28/19 08:25 Iohexol (OMNIPAQUE-300 100ml) 100 ml ONCE PRN INJ radiology procedure 03/26/19 16:00 03/28/19 15:59 Low Hernandez MD Mar 28, 2019 13:26
--- NOTE | 2019-03-28 15:24 | NUR ---
SCOOPERRESPIRATORY DIRECTOR 03/27/19 34 YO MALE FROM HOME TO ER CC RIGHT GROIN BULGING, WITH PUS DRAINAGE SI; CELLULITIS,ABSCESS T. 98.7 HR 102 RR 21 B/P 133/84 ALK PHOS 209 ABD/PEL CT=Skin thickening of medial right upper thigh with some associated asymmetric stranding in the subcutaneous fat in this region (series 3 image #[id number]). No organized/drainable fluid collection to suggest abscess. IS: VANCO IV IV BOLUS NS X 1 LITER ADMITTED TO MED/SURG MED/SURG STATUS 03/27/19 SI: CELLULITIS,ABSCESS T. 97.0 HR 59 RR 18 B/P 152/72 ALK PHOS 155 ESR 56 IS: DOXYCYCLINE PO KEFLEX PO TYLENOL PO MED/SURG STATUS
[2019-03-28 16:00] VITALS: BP_SYST 132; BP_SYST 139; BP_DIAS 57; BP_DIAS 92
--- NOTE | 2019-03-28 16:16 | NUR ---
NURSE NOTES: PT HAS d/c ORDER, ALL DISCHARGE ASSESSMENTS AND INSTRUCTIONS DONE AND PT VERBALLY CONFIRMED TO UNDERSTAND ALL. STABLE. V/S STABLE. PT DOESN'T HAVE HOME MEDS AND RN ASKED PT AGAIN AND HE EMPHASIS HE DOESN'T HAVE HOME MEDS. PT WILL BEAD WIRE TAPER ANTIBIOTICS FROM PHARMACY [address]. IV ACCESS D/C. ALL BELONGINGS ARE WITH PT AND PT SIGNED THE BELONGINGS LIST. PT DOESN'T WANT TO CALL FAMILY MEMBER REGARDING DISCHARGE. PT LEFT HOSPITAL BY HIM SELF.
[2019-03-28] MEDS ORDERED: Cephalexin 500mg cap ORAL SCH (18:00)
--- NOTE | 2019-03-28 18:01 | Surgery Progress Note ---
Surgery Progress Note Subjective Symptoms: improved, tolerating diet, voiding well, passing flatus, BM, pain decreased Additional Comments Ct noted exam stable d/c planning with wound care Objective Last 24 Hour Vital Signs Date Time Temp Pulse Resp B/P (MAP) Pulse Ox O2 Delivery O2 Flow Rate FiO2 03/28/19 16:00 99.0 70 18 139/92 (108) 98 03/28/19 12:00 98.6 67 18 134/92 (106) 98 03/28/19 09:00 Room Air 03/28/19 08:00 97.0 67 18 134/64 (87) 99 03/28/19 04:00 97.9 55 20 155/72 (99) 95 03/28/19 00:00 97.3 61 18 142/75 (97) 95 03/27/19 21:00 Room Air 03/27/19 20:00 98.1 66 20 122/75 (91) 95 I&O Intake and Output 03/27/19 03/28/19 19:00 07:00 Intake Total 300 ml Balance 300 ml Intake Oral 300 ml # Voids 2 Dressing: saturated Wound: clean Cardiovascular: RSR Respiratory: clear Abdomen: soft, flat, non-tender, present bowel sounds Extremities: no edema, no tenderness, no cyanosis, other Plan Problems: (1) Abscess Assessment & Plan: 34M with spontaneously draining right thigh abscess present for 1 month buttock area as well and left thigh almost consistent with HS hydradenitis superlative no acute surgical intervention planned since draining spont * Skin thickening of medial right upper thigh with some associated asymmetric stranding in the subcutaneous fat in this region (series 3 image #[id number]). No organized/drainable fluid collection to suggest abscess. Similar findings are noted to a lesser extent involving the skin of the right gluteal cleft (series 3 image #112). Again no well-defined/drainable fluid collection is identified. Findings may be related to a cellulitis and correlation with physical exam of these areas is recommended. * Prominent inguinal lymph nodes, right greater than left favored to be reactive in etiology. * Few scattered colonic diverticula visualized without evidence of acute diverticulitis. IV abx as per JERRY iniguez for diet hygiene local wound care and skin care instructions given d/c outpt pcp / surgical f/u thank you will follow with recs (2) Cellulitis Jorge Londono Mar 28, 2019 18:00
--- NOTE | 2019-03-29 13:03 | NUR ---
*-* INSURANCE *-* DISCHARGE INSTRUCTIONS HAVE BEEN FAXED TO: KYRIE/GARRETT NO BARREL BRANDER ASSIGNED AT THIS TIME. PLEASE FAX THE REVIEW/CLINICAL P- [phone] F- [phone]....REVIEW/CLINICAL
--- NOTE | 2019-03-29 14:15 | Discharge Summary ---
Discharge Summary Discharge Summary _ DATE OF ADMISSION: 03/26/2019 DATE OF DISCHARGE: 03/28/2019 DISCHARGED BY: Dr. Solis REASON FOR ADMISSION: 34 years old male with no significant past medical history, presented with chief complaint of lump on his right inner thigh. Patient reported that it had been draining pus. He denied fever and chills. He denied nausea and vomiting. He denies difficulty urination or any change in bowel habits. Upon evaluation vital signs revealed mild tachycardia. Pulse oximetry was stable on room air. Physical exam revealed right inner thigh with a large open area of induration and erythema, draining purulent drainage. No fluctuance. Patient subsequently admitted to medical surgical floor for further management CONSULTANTS: ID specialist Dr. Walter preschool teacher's assistant/oncologist Dr. Hernandez surgery Dr. Londono [facility]: Patient admitted to medical surgical floor. Patient started on empiric antibiotic as per ID specialist recommendation. Pain management was addressed. Surgeon consult was requested for need for surgical intervention. Blood cultures were negative. CT of the pelvis done on 8 revealed skin thickening of medial right upper thigh with some associated asymmetric stranding in the subcutaneous fat in this region. No organized/drainable fluid collection to suggest abscess. Similar findings were noted to a lesser extent, involving the skin of the right gluteal cleft. Again no well-defined/drainable fluid collection was identified. Findings may be related to a cellulitis and correlation with physical exam of these areas was recommended. Prominent inguinal lymph nodes, right greater than left favored to be reactive in etiology. Few scattered colonic diverticula visualized without evidence of acute diverticulitis. Physical examination by surgeon revealed spontaneously draining right thigh abscess present for 1 month along with buttock area and left thigh, consistent with hydradenitis suppurativa. . Abscess was spontaneously draining. CT scan of the pelvis, as mentioned above, revealed no evidence of deep pockets. No acute surgical intervention was planned, since it was draining spontaneously. Local wound care and skin instruction provided as per surgeon recommendation. IV antibiotic provided as per ID specialist recommendation. Wound culture revealed Staph aureus and strep group B. Per oncologist, lymphadenopathy was likely related to hidradenitis suppurativa and very unlikely lymphoma, no need for biopsy. Hemoglobin and hematocrit were closely monitored with goal to keep hemoglobin above 7. Hemoglobin and hematocrit remained at baseline; prior to discharge hemoglobin 12, hematocrit 36.9. Patient clinically stabilized. No leukocytosis , no fevers. Patient was ready for discharge home on oral Keflex to complete the course. Patient was given instructions on local wound care and skin care as per general surgeon. Patient was stable for discharge. Outpatient follow-up with a primary care provider. FINAL DIAGNOSES: Hydradenitis suppurativa right groin area Cellulitis and abscess of groin Morbid obesity Anemia due to underlying chronic disease Lymphadenopathy, likely related to hidradenitis suppurativa DISCHARGE MEDICATIONS: Patient was discharged on Keflex to complete the course. Patient picked up Keflex from the pharmacy across the street . DISCHARGE INSTRUCTIONS: Patient was discharged home. Follow up with primary care provider in one week. I have been assigned to dictate discharge summary for this account. I was not involved in the patient's management. Guadalupe Casas NP Mar 29, 2019 14:15
== END 2019-03-28 16:14 | disposition home or self-care (01) | DRG 383 ==
LOC: EMR 09:14 → 4E 12:52 → EDBEDREQ 12:59
DX: L02.214 Cutaneous abscess of groin (principal); L03.314 Cellulitis of groin; L73.2 Hidradenitis suppurativa; E66.01 Morbid (severe) obesity due to excess calories; D63.8 Anemia in other chronic diseases classified elsewhere; R59.1 Generalized enlarged lymph nodes; B95.0 Streptococcus, group A, as the cause of diseases classified elsewhere; B95.61 Methicillin susceptible Staphylococcus aureus infection as the cause of diseases classified elsewhere; Z68.38 Body mass index [BMI] 38.0-38.9, adult
CPT/HCPCS: 36415; 72193; 80053; 83036; 83605; 85025; 85610; 85651; 85730; 86140; 87040; 87070; 87181; 87205; 96365; 96366; 99285